=== PATIENT | female | born 1980 | race American Indian/Alaskan Native ===

== ENCOUNTER 2018-05-03 17:09 | Outpatient (CLI) | payer MEDICAID, OTHER ==
[2018-05-03] MEDS ORDERED: LACTATED RINGERS 500 ML IV ONE (17:27)
--- NOTE | 2018-05-03 19:10 | Ultrasound Report ---
FINAL REPORT EXAM: US OB BPP WO NON-STRESS HISTORY: H/O IUFD NON REASSURING FHT'S IN MD OFFICE TECHNIQUE: Ultrasound biophysical profile PRIORS: None. FINDINGS: Single live intrauterine gestation is present with heart rate of 121 beats per minute Biophysical profile was performed respiratory motion 2 Body movement 2 tone 2 Amniotic fluid volume 2 Total 10/21 Impression Normal biophysical profile 10/21
--- NOTE | 2018-05-03 19:14 | Ultrasound Report ---
FINAL REPORT EXAM: US OB LIMITED HISTORY: H/O IUFD NON REASSURING FHT'S IN MD OFFICE TECHNIQUE: Ultrasound obstetrical transabdominal limited PRIORS: None. FINDINGS: Single intrauterine gestation present in cephalic presentation Amniotic fluid index is within normal limits 16.4 centimeters. cardiac activity identified with heart rate of 121 beats per minute IMPRESSION: Single live intrauterine gestation in cephalic presentation
[2018-05-03 19:19] VITALS: BP 113/68
== END 2018-05-03 19:40 | disposition home or self-care (01) ==
LOC: TRG 17:09
PROVIDERS: ATTEND Obstetrics & Gynecology
DX: O47.03 False labor before 37 completed weeks of gestation, third trimester (principal); Z3A.36 36 weeks gestation of pregnancy; Z87.891 Personal history of nicotine dependence
CPT/HCPCS: 59025; 76815; 76819

== ENCOUNTER 2018-05-20 06:54 | Inpatient (IN) | payer OTHER, MEDICAID ==
--- NOTE | 2018-05-20 07:25 | History and Physical Report ---
History of Present Illness Date of examination: 05/20/18 Date of admission: 05/20/18 06:54 Chief complaint: Repeat C Section with BTL History of present illness: Pt is a 37yo BF EDC 05/28/18; EGA 38 6/7 weeks presents for Repeat C Section with BTL. She received care at [facility] and co-managed by [facility] for previous C Section x 2, AMA and previous demise. records are available and GBS is Negative. 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 History: herpes Social history: no significant social history, single - Obstetrical History Expected Date of Delivery: 05/28/18 Actual Gestation: 38 Week(s) 6 Day(s) : 8 Medications and Allergies Allergies Allergy/AdvReac Type Severity Reaction Status Date / Time No Known Allergies Allergy Verified 05/04/15 14:52 Home Medications Medication Instructions Recorded Confirmed Last Taken Type Vit 108/Iron/Folic AC 1 each PO QDAY 07/27/13 05/30/15 05/29/15 23:00 History [ One Tablet] Valacyclovir HCl [valACYclovir] 1 tab PO DAILY 05/04/15 05/30/15 05/29/15 23:00 History Ferrous Sulfate [Feosol 325 MG tab] 325 mg PO BID #60 tablet 05/30/15 Unknown Rx HYDROcodone/APAP 5-325 [[place] 1 each PO Q6HR PRN #30 tablet 05/30/15 Unknown Rx 5/325] Ibuprofen [Motrin] 800 mg PO Q8HR PRN #30 tablet 05/30/15 Unknown Rx Ferrous Sulfate [Feosol 325 MG tab] 325 mg PO BID #60 tablet 05/20/18 Unknown Rx HYDROcodone/APAP 5-325 [[place] 1 each PO Q6HR PRN #30 tablet 05/20/18 Unknown Rx 5/325] Ibuprofen [Motrin] 800 mg PO Q8HR PRN #30 tablet 05/20/18 Unknown Rx Pnv No.95/Ferrous Fum/Folic AC 1 each PO DAILY #30 tablet 05/20/18 Unknown Rx [Prenavite Tablet] Review of Systems All systems: negative - Physical Exam Breasts: Positive: deferred Cardiovascular: Regular rate Lungs: Positive: Clear to auscultation Abdomen: Positive: normal appearance Genitourinary (Female): Positive: normal external genitalia Vagina: Positive: normal moisture Uterus: Positive: enlarged Extremities: Positive: normal - Obstetrical FHR: category 1 Uterine Contraction Monitor Mode: External Uterine Contraction Pattern: Absent Results Result Diagrams: 05/20/18 08:00 All other labs normal. Assessment and Plan - Patient Problems (1) 38 weeks gestation of Onset Date: 05/20/18 Current Visit: Yes Status: Acute Plan to address problem: A: IUP @ 38 6/7 weeks Previous C Section x 2 Suspected IUGR AMA Previous demise Desires permanent sterilization P: Admit to L&D for a Repeat C Section with BTL (2) Previous section Onset Date: 05/20/18 Current Visit: Yes Status: Chronic (3) AMA (advanced maternal age) multigravida 35+ Onset Date: ~05/20/18 Current Visit: Yes Status: Chronic Qualifiers: Trimester: third trimester Qualified Code(s): O09.523 - Supervision of elderly multigravida, third trimester (4) Symmetric IUGR complicating , antepartum Onset Date: 05/20/18 Current Visit: Yes Status: Acute Qualifiers: Fetus number: single or unspecified fetus Qualified Code(s): O36.5990 - Maternal care for other known or suspected poor growth, unspecified trimester, not applicable or unspecified
[2018-05-20] MEDS ORDERED: LACTATED RINGERS 2,000 ML ONE (08:07)
--- NOTE | 2018-05-20 08:15 | Anesthesia Consultation ---
Anesthesia Consult and Med Hx Date of service: 05/20/18 - Airway Anesthetic Teeth Evaluation: Good ROM Head & Neck: Adequate Mental/Hyoid Distance: Adequate Mallampati Class: Class I Intubation Access Assessment: Probably Good - Pulmonary Exam CTA: Yes - Cardiac Exam Cardiac Exam: RRR - Pre-Operative Health Status ASA Pre-Surgery Classification: ASA2 Proposed Anesthetic Plan: Epidural, Spinal - Pulmonary Hx Smoking: Yes (quit) Hx Asthma: No COPD: No Hx Pneumonia: No - Cardiovascular System Hx Hypertension: No - Central Nervous System Hx Seizures: No Hx Psychiatric Problems: No - Endocrine Hx Renal Disease: No Hx End Stage Renal Disease: No Hx Cirrhosis: No Hx Insulin Dependent Diabetes: No Hx Non-Insulin Dependent Diabetes: No Hx Hypothyroidism: No Hx Hyperthyroidism: No - Hematic Hx Anemia: No Hx Sickle Cell Disease: No - Other Systems Hx Alcohol Use: No Hx Substance Use: Yes (THC) Hx Obesity: Yes
[2018-05-20] MEDS ORDERED: SENSORCAINE/DEXTR 0.75-8.25% INFILTRATI ONE (08:20)
[2018-05-20] MEDS ORDERED: SUBLIMAZE ONE (08:20)
[2018-05-20] MEDS ORDERED: ASTRAMORPH PF 10MG/10ML ONE (08:20)
[2018-05-20 08:37] LABS: Basophils # (Auto) 0.1 K/mm3 (0.0-0.1); Basophils % (Auto) 0.8 % (0.0-1.8); Eosinophils % (Auto) 0.3 % (0.0-4.3); Hematocrit 32.6 % (30.3-42.9); Lymphocytes # (Auto) 1.7 K/mm3 (1.2-5.4); Lymphocytes % (Auto) 24.1 % (13.4-35.0); Mean Corpuscular HGB Conc 34 % (30-34); Mean Corpuscular Volume 88 fl (79-97); Monocytes # (Auto) 0.4 K/mm3 (0.0-0.8); Monocytes % (Auto) 5.1 % (0.0-7.3); Platelet Count 253 K/mm3 (140-440); Red Cell Distribution Width 15.1 % (13.2-15.2)
[2018-05-20] MEDS ORDERED: BICITRA PO NR (09:00)
[2018-05-20] MEDS ORDERED: REGLAN IV NR (09:00)
[2018-05-20] MEDS ORDERED: LACTATED RINGERS 1,000 ML IV SCH (09:00)
[2018-05-20] MEDS ORDERED: PITOCin/NS 20 UNIT/1000ML DRIP 20 UNITS/1,000 ML BAG IV SCH ×2 (09:00→12:00)
[2018-05-20] MEDS ORDERED: fentaNYL-BUPIV 2 MCG/ML-0.125% 200 MCG/100 ML BAG EPIDURAL SCH (09:00)
[2018-05-20] MEDS ORDERED: ZOFRAN IV PRN (09:00)
[2018-05-20] MEDS ORDERED: PEPCID IV NR (09:00)
[2018-05-20] MEDS ORDERED: SODIUM CHLORIDE FLUSH SYRINGE 10 ML IV PRN (09:00)
[2018-05-20] MEDS ORDERED: ANCEF/STERILE WATER 2 GM/20 ML 2 GM/20 ML SYRINGE IV NR (09:00)
[2018-05-20] MEDS ORDERED: PHENERGAN PO PRN (09:00)
[2018-05-20] MEDS ORDERED: PHENERGAN PR PRN (09:30)
[2018-05-20] MEDS ORDERED: NARCAN 0.4 MG/1 ML IV PRN ×2 (09:30→11:38)
[2018-05-20] MEDS ORDERED: WATER FOR IRRIG STERILE IR ONE (10:35)
[2018-05-20] MEDS ORDERED: NACL 0.9% IR ONE (10:35)
[2018-05-20] MEDS ORDERED: TUCKS PAD TP PRN (11:38)
[2018-05-20] MEDS ORDERED: TORADOL IV PRN (11:38)
[2018-05-20] MEDS ORDERED: LANSINOH TP PRN (11:38)
[2018-05-20] MEDS ORDERED: TYLENOL PO PRN (11:38)
[2018-05-20] MEDS ORDERED: MILK OF MAGNESIA PO PRN (11:38)
[2018-05-20] MEDS ORDERED: SENOKOT PO PRN (11:38)
[2018-05-20] MEDS ORDERED: MYLICON PO PRN (11:38)
[2018-05-20] MEDS ORDERED: SODIUM CHLORIDE FLUSH SYRINGE 10 ML IV SCH (12:00)
[2018-05-20] MEDS ORDERED: D5LR 1,000 ML IV SCH (12:00)
--- NOTE | 2018-05-20 12:02 | Operative Report ---
Operative Report Operative Report: Date of procedure: 05/20/2018 Pre-operative diagnosis: 1. Intrauterine at 38-6/7 weeks 2. Previo us 2 3. Suspected IUGR 4. Advanced maternal age 5. Previous demise 6. Desires permanent sterilization Post-operative diagnosis: Same Procedure name(s): 1. Repeat low transverse section 2. Bilateral tubal ligation Surgeon: Manuel Shah MD Rn Community Health: None Anesthesia: Spinal anesthesia by Dr. Burns EBL: 700 mL Findings: A 2364 g female Apgars 8 at 1 minute and 9 at 5 minutes. Clear amniotic fluid. Normal uterus. Normal tubes and ovaries bilaterally. Procedure: After the patient was prepped and draped in usual sterile fashion, and after satisfactory level of epidural anesthesia was obtained, the skin knife was used to make a transverse skin incision through the previous skin scars. The incision was excised down to layer of the fascia, which was nicked in the midline and extended laterally using the Bovie cautery. The rectus muscles were dissected off the rectus fascia both superiorly and inferiorly. The rectus bellies in the midline, and the peritoneum was entered under direct visualization. The peritoneal incision was extended superiorly and inferiorly. A bladder flap was created and the bladder blade was then placed. The uterus was scored in a curvilinear linear fashion, entered in the midline revealing clear amniotic fluid. The infant's head was delivered onto the surgical field with the aid of a vacuum, and the oropharynx and nasopharynx were bulb suctioned. The rest of the 's body was delivered, cord was doubly clamped and cut and the was handed to the waiting respiratory team. Cord blood was then obtained. The placenta was manually removed from the uterus, and the uterus removed from its normal anatomical position. After gentle uterine lavage, the incision was inspected and found to be without extensions. It was then closed in 2 layers using 0 Vicryl suture in a running interlocking fashion, the second layer imbricating the first. After good hemostasis was achieved, copious amounts or irrigation was performed, and the gutters were suctioned free of blood and blood clots. Attention was then turned to the tubal ligation. First the right fallopian tube was grasped using Amelia, and the Filshie clip was applied to the proximal portion of the tube. The left fallopian tube was grasped with a Amelia, and the Filshie clip was applied to the proximal portion of the tube. The Tisseel sealant was sprayed across the uterine incision. The uterus was then returned to its normal anatomical position, and after excellent hemostasis assured, the peritoneum was re-approximated using 3-0 Vicryl suture in a running interlocking fashion, and then the rectus muscles were re- approximated using 3-0 Vicryl suture in a [id number] configuration. The fascia was then re-approximated using 0 Vicryl suture in running interlocking fashion. The subcutaneous layer was made hemostatic using Bovie cautery, the Tisseel sealant was sprayed across the fascial incision and the skin edges re- approximated using 4-0 Vicryl suture in a sub-cuticular fashion. Patient tolerated the procedure well was transported to recovery in stable condition.
[2018-05-20] MEDS: ANCEF/NS 1 GM/50 ML 1 GM/50 ML BAG IV SCH (18:08)
[2018-05-20 23:03] LABS: Hematocrit 28.3 % (30.3-42.9); Hemoglobin 9.6 gm/dl (10.1-14.3)
[2018-05-21] MEDS: ANCEF/NS 1 GM/50 ML 1 GM/50 ML BAG IV SCH (01:14)
[2018-05-21] MEDS ORDERED: BOOSTRIX IM ONE (06:00)
[2018-05-21] MEDS: FEOSOL PO SCH (08:55)
[2018-05-21] MEDS: PERCOCET 5/325 PO PRN (08:55)
[2018-05-21] MEDS: PRENATAL VITAMIN PO SCH (08:55)
--- NOTE | 2018-05-21 10:22 | Progress Note ---
Assessment and Plan - Patient Problems (1) 38 weeks gestation of Onset Date: 05/20/18 Current Visit: Yes Status: Resolved (2) Previous section Onset Date: 05/20/18 Current Visit: Yes Status: Resolved (3) AMA (advanced maternal age) multigravida 35+ Onset Date: ~05/20/18 Current Visit: Yes Status: Chronic Qualifiers: Trimester: third trimester Qualified Code(s): O09.523 - Supervision of elderly multigravida, third trimester (4) Symmetric IUGR complicating , antepartum Onset Date: 05/20/18 Current Visit: Yes Status: Resolved Qualifiers: Fetus number: single or unspecified fetus Qualified Code(s): O36.5990 - Maternal care for other known or suspected poor growth, unspecified trimester, not applicable or unspecified (5) Status post Onset Date: 05/21/18 Current Visit: Yes Status: Resolved Plan to address problem: A: S/P Repeat C Section with BTL - POD #1 Doing well Asymptomatic anemia - stable P: Continue RPOC Advance diet as tolerated Anticipate discharge in 24-48hrs Subjective - Subjective Date of service: 05/21/18 Principal diagnosis: s/p Repeat C Section with BTL - POD#1 Interval history: Pt is feeling well without complaints. Bleeding improved. She is tolerating a liquid diet without nausea or vomiting, ambulating and voiding without difficulty. Patient reports: appetite normal, voiding normally, pain well controlled, flatus, ambulating normally, no dizzy ambulation, no nauseated [place]: doing well, nursing well Objective - Vital Signs Latest vital signs: Vital Signs Temp Pulse Resp BP BP Pulse Ox 05/21/18 08:59 98.6 F 102 H 18 104/66 97 05/21/18 04:00 99 05/21/18 02:00 99 05/21/18 00:04 98.5 F 84 18 95/53 96 05/21/18 00:00 97 05/20/18 23:02 18 05/20/18 22:32 18 05/20/18 22:00 98 05/20/18 20:00 97 05/20/18 18:30 100/52 98 05/20/18 17:08 98 05/20/18 16:26 97.3 F L 59 L 20 98/41 97 05/20/18 15:00 18 98 05/20/18 14:00 97 05/20/18 13:25 97.3 F L 61 18 106/51 97 05/20/18 12:45 68 16 90/48 100 05/20/18 12:30 76 14 88/48 100 05/20/18 12:15 53 L 16 96/47 100 05/20/18 12:00 56 L 14 100/46 100 05/20/18 11:50 68 16 92/50 100 05/20/18 11:45 59 L 91/41 100 05/20/18 11:43 97.6 F 68 16 92/43 100 Intake and Output 05/20/18 05/21/18 05/21/18 22:59 06:59 14:59 Intake Total 250 480 Output Total 250 Balance 0 480 Intake: IV 50 ANCEF/NS 1 GM/50 ML 1 gm 50 In 50 ml @ 100 mls/hr IV Q8H [facility] Rx#:[id number] Oral 200 120 Intake, Free Water 360 Output: Urine 250 Indwelling Catheter 250 Other: Total, Intake Amount 200 120 Total, Output Amount 250 - Exam Breasts: Present: deferred Abdomen: Present: soft Uterus: Present: normal, firm, fundal height below umbilicus Extremities: Present: normal Incision: Present: normal, dry, intact, dressed - Labs Labs: Abnormal lab results 05/20/18 Range/Units 22:50 Hgb 9.6 L (10.1-14.3) gm/dl Hct 28.3 L (30.3-42.9) % Laboratory Tests 05/20/18 05/20/18 05/20/18 08:00 08:00 22:50 WBC 6.8 RBC 3.70 Hgb 11.0 9.6 L Hct 32.6 28.3 L MCV 88 MCH 30 MCHC 34 RDW 15.1 Plt Count 253 Lymph % (Auto) 24.1 [place] % (Auto) 5.1 Eos % (Auto) 0.3 Baso % (Auto) 0.8 Lymph # 1.7 [place] # 0.4 Eos # 0.0 Baso # 0.1 Seg Neutrophils % 69.7 Seg Neutrophils # 4.8 Blood Type A POSITIVE Antibody Screen Negative
[2018-05-21] MEDS ORDERED: M-M-R II VACCINE SUB-Q ONE (11:41)
[2018-05-21] MEDS: IBUPROFEN PO PRN ×2 (17:10→22:49)
[2018-05-21] MEDS: NORCO 5/325 PO PRN ×2 (17:11→22:50)
[2018-05-22] MEDS: IBUPROFEN PO PRN ×3 (05:30→22:24)
[2018-05-22] MEDS: PERCOCET 5/325 PO PRN ×2 (05:31→14:00)
--- NOTE | 2018-05-22 10:06 | Progress Note ---
Assessment and Plan - Patient Problems (1) 38 weeks gestation of Onset Date: 05/20/18 Current Visit: Yes Status: Resolved (2) Previous section Onset Date: 05/20/18 Current Visit: Yes Status: Resolved (3) AMA (advanced maternal age) multigravida 35+ Onset Date: ~05/20/18 Current Visit: Yes Status: Chronic Qualifiers: Trimester: third trimester Qualified Code(s): O09.523 - Supervision of elderly multigravida, third trimester (4) Symmetric IUGR complicating , antepartum Onset Date: 05/20/18 Current Visit: Yes Status: Resolved Qualifiers: Fetus number: single or unspecified fetus Qualified Code(s): O36.5990 - Maternal care for other known or suspected poor growth, unspecified trimester, not applicable or unspecified (5) Status post Onset Date: 05/21/18 Current Visit: Yes Status: Resolved Plan to address problem: A: S/P Repeat C Section with BTL - POD #2 Doing well Asymptomatic anemia - stable P: May go home today. Subjective - Subjective Date of service: 05/22/18 Principal diagnosis: s/p Repeat C Section with BTL - POD#2 Interval history: Pt is feeling well without complaints. Bleeding improved. She is tolerating a reg diet without nausea or vomiting, ambulating and voiding without difficulty. Patient reports: appetite normal, voiding normally, pain well controlled, flatus, ambulating normally, no dizzy ambulation, no nauseated [place]: doing well, nursing well Objective - Vital Signs Latest vital signs: Vital Signs Temp Pulse Resp BP Pulse Ox 05/21/18 23:39 97.9 F 84 16 103/55 98 05/21/18 16:48 98.4 F 87 18 92/50 98 Intake and Output 05/21/18 05/22/18 05/22/18 22:59 06:59 14:59 Intake Total 1200 Output Total 450 Balance 750 Intake: Oral 480 Intake, Free Water 720 Output: Urine 450 Indwelling Catheter 450 Other: Total, Intake Amount 480 Total, Output Amount 450 - Exam Breasts: Present: deferred Abdomen: Present: normal appearance, soft Uterus: Present: normal, firm, fundal height below umbilicus Extremities: Present: normal Incision: Present: normal, dry, intact
--- NOTE | 2018-05-22 10:44 | Discharge Summary ---
Providers - Providers Date of Admission: 05/20/18 06:54 Date of discharge: 05/22/18 Attending physician: MICHELLE RAMIREZ Primary care physician: MICHELLE RAMIREZ Hospitalization Reason for admission: section (Previous C Section x 2), IUP at term, other (IUGR; AMA) Delivery: Procedure: section, bilateral tubal ligation, repeat low transverse Incision: normal, dry, intact Other procedures: tubal ligation complications: none Discharge diagnosis: IUP at term delivered [place] baby: female Hospital course: Pt is a 37yo BF EDC 05/28/18; EGA 38 6/7 weeks who presented for a Repeat C Section with BTL. She received care at [facility] and co-managed by [facility] for previous C Section x 2, AMA and previous demise. She underwent an uncomplicated Repeat C Section with BTL and tolerated the procedure well. By POD #2 she was tolerating a reg diet without nausea or vomiting, ambulating and voiding without difficulty. She was therefore discharged to home on POD #2 in stable condition. Condition at discharge: Good Disposition: [id number] TO HOME OR SELFCARE - Discharge Diagnoses (1) 38 weeks gestation of Status: Resolved (2) Previous section Status: Resolved (3) AMA (advanced maternal age) multigravida 35+ Status: Chronic Qualifiers: Trimester: third trimester Qualified Code(s): O09.523 - Supervision of elderly multigravida, third trimester (4) Symmetric IUGR complicating , antepartum Status: Resolved Qualifiers: Fetus number: single or unspecified fetus Qualified Code(s): O36.5990 - Maternal care for other known or suspected poor growth, unspecified trimester, not applicable or unspecified (5) Status post Status: Resolved Plan - Discharge Medications Prescriptions: Fluconazole [Diflucan] 150 mg PO DAILY #1 tablet Ferrous Sulfate [Feosol 325 MG tab] 325 mg PO BID #60 tablet Ibuprofen [Motrin] 800 mg PO Q8HR PRN #30 tablet PRN Reason: Moder Pain Unrelieved By [place] HYDROcodone/APAP 5-325 [[place] 5/325] 1 each PO Q6HR PRN #30 tablet PRN Reason: Pain oxyCODONE /ACETAMINOPHEN [Percocet 5/325 mg] 1 tab PO Q6H PRN #30 tablet PRN Reason: Pain, Moderate (4-6) Pnv No.95/Ferrous Fum/Folic AC [Prenavite Tablet] 1 each PO DAILY #30 tablet - Provider Discharge Summary Activity: routine, no sex for 6 weeks, no heavy lifting 4 weeks, no strenuous exercise Diet: routine Instructions: routine Additional instructions: [] Smoking cessation referral if applicable(refer to patient education folder for contact #) [] Refer to [facility]'s [facility] Booklet Call your doctor immediately for: * Fever > 100.5 * Heavy vaginal bleeding ( >1 pad per hour) * Severe persistent headache * Shortness of breath * Reddened, hot, painful area to leg or breast * Drainage or odor from incision. * Keep incision clean and dry at all times and follow doctor's instructions regarding bathing/showering - Follow up plan Follow up: MICHELLE RAMIREZ MD [Primary Care Provider] - 14 Days
[2018-05-22] MEDS: FEOSOL PO SCH (14:00)
[2018-05-22] MEDS: PRENATAL VITAMIN PO SCH (14:00)
[2018-05-22] MEDS: NORCO 5/325 PO PRN (22:24)
[2018-05-23] MEDS: PERCOCET 5/325 PO PRN ×2 (06:18→15:56)
[2018-05-23 10:12] VITALS: BP 114/73
[2018-05-23] MEDS: PRENATAL VITAMIN PO SCH (10:21)
[2018-05-23] MEDS: FEOSOL PO SCH (10:22)
[2018-05-23] MEDS: IBUPROFEN PO PRN (15:56)
== END 2018-05-23 17:10 | disposition home or self-care (01) | DRG 784 ==
LOC: APU 06:54 → OB 13:47
PROVIDERS: ADMIT Obstetrics & Gynecology; ATTEND Obstetrics & Gynecology
PROC: 10D00Z1 Extraction of Products of Conception, Low, Open Approach (ICD-10-PCS; principal; 2018-05-20)
PROC: 0UL70CZ Occlusion of Bilateral Fallopian Tubes with Extraluminal Device, Open Approach (ICD-10-PCS; 2018-05-20)
PROC: 3E0234Z Introduction of Serum, Toxoid and Vaccine into Muscle, Percutaneous Approach (ICD-10-PCS; 2018-05-21)
DX: O34.211 Maternal care for low transverse scar from previous cesarean delivery (principal); D62 Acute posthemorrhagic anemia; O36.5930 Maternal care for other known or suspected poor fetal growth, third trimester, not applicable or unspecified; Z3A.38 38 weeks gestation of pregnancy; Z37.0 Single live birth; O99.02 Anemia complicating childbirth; Z87.891 Personal history of nicotine dependence; Z23 Encounter for immunization; Z79.899 Other long term (current) drug therapy; Z30.2 Encounter for sterilization
CPT/HCPCS: 36415; 85014; 85018; 85025; 86850; 86900; 86901; G0378; A6250; C9250; J0690; J1885; J2274; J2405; J2590; J2765; J3010; J7120